=== PATIENT | female | born 1995 | race Caucasian/White ===

== ENCOUNTER 2023-06-24 08:49 | Outpatient (CLI) | payer MEDICAID, SELFPAY ==
[2023-06-24 10:47] VITALS: BP 117/74; PULSE 79; TEMP 36.8
[2023-06-24 11:23] VITALS: BP 117/74; PULSE 79
[2023-06-24 11:32] LABS: ROM Plus Negative
== END 2023-06-24 12:15 | disposition home or self-care (01) ==
LOC: BCD 08:51 → OBS 10:46
PROVIDERS: Visit Provider Family Medicine
DX: O47.03 False labor before 37 completed weeks of gestation, third trimester (principal); Z3A.33 33 weeks gestation of pregnancy
CPT/HCPCS: 84112; 59025

== ENCOUNTER 2023-07-13 06:28 | Inpatient (IN) | payer MEDICAID, SELFPAY ==
[2023-07-13] VITALS (106 sets, daily range): BP systolic 109–132; BP diastolic 60–93; PULSE 67–108; RESP 16–18; TEMP 36.4–37.1; O2SAT 95–100; BMI 43.1
--- NOTE | 2023-07-13 06:21 | W.PM.OBHPL1 ---
Date of service: 07/13/23 Time of Service: 06:21 Assessment and Plan Assessment and plan (1) Post-dates : Status: Acute Assessment and plan: Occas mild ctx, cat 1 NST, post dates. Given only 1+ cm, will start with cooks catheter and advance to miso/pit as indicated as day progresses. routine monitoring, labs. Aware of inc risk for Shoulders. Discussed Felicita and add'l procedures if needed with delivery. OB-HPI Labor/Delivery History of Present Illness Reason for Visit: induction of labor Chief Complaint: Scheduled Induction of Labor Indication for Induction: Post Date. WENDY Calculator Estimated Delivery Date Method Current WG Current Estimate 07/05/23 LMP (Certain) 41w 1d Other Estimates 07/08/23 Ultrasound #1 40w 5d Comments: Eunice is 28 yo at 41 1/7 with prodromal ctx for a few days. Reassuring Cat 1 NST 07/10 and 07/11. Last cervical exam: 1-2 cm, soft, ant, engaged, 50% effaced. Good mvmt, transient CAMEJO yesterday, nl BP, no GDM. Eunice and partner reviewed risks/benefits of augmentation/induction modalities - miso, pit - hyperstim, FHT abnormalities, stress, inc c/section risk. Overnight she napped - hard to sleep with ,mild ctx Q 10 min. Good Fmvt, no ROM GBS neg - Short stature - inc risk shoulders Note wt ttreand over - down ~10# persistent cig use - down to 6-8 despite chantix use. note hx mental health issues - on citalopram currently History of Present Expected Delivery Route/Plan NVD [facility] pt Specific Issues/Plan 1. Smoker - 1/2ppd 2. Obesity: BMI 43.2 -anesthesia consult 05/18/23 3. Anxiety: on Lexapro Narrative: as above PFSH All Active Problems (Updated 07/13/23 @ 06:46 by Brijesh Virmaontes) Post-dates (Acute) Lumbar herniated disc (Acute) Obesity (Chronic) Vitamin D deficiency (Acute) Seasonal allergies (Acute) Moderate major depression (Acute) Migraine headache without aura (Acute) Intrinsic eczema (Acute) Hypertriglyceridemia (Acute) Hyperinsulinemia (Acute) Chronic pain disorder (Chronic) Asthma, exercise induced (Acute) Anxiety (Chronic) (Acute) Medical History (Updated 07/13/23 @ 06:46 by Brijesh Viramontes) Abnormal Pap smear of cervix Chronic GERD Superficial perivascular dermatitis punch BX 2017 Surgical History History of carpal tunnel surgery of left wrist 02/2021 History of carpal tunnel surgery of right wrist 10/2020 History of tonsillectomy 2019 History of cholecystectomy 2018 Family History (Updated 05/18/23 @ 14:01 by Ashli Nicolas LPN) Mother Diabetes Hypertension Endometriosis Other malignant neoplasm without specification of site Uterine cancer Father COPD (chronic obstructive pulmonary disease) Brother Allergies ADHD Nonpsychotic mental disorder Sister Bipolar depression ADHD Nonpsychotic mental disorder Maternal Grandfather Dementia Maternal Grandmother Tongue cancer Diabetes Other malignant neoplasm without specification of site Maternal Uncle No problems noted. Social History (Updated 05/18/23 @ 17:59 by Kiara Mercedes MD) Smoking/Tobacco Use Status: Current every day Tobacco Type: cigarettes Smoking packs per day: 0.5 Smoking cigarettes per day: 10.0 Smoking risk assessment performed?: Yes Alcohol Intake: former Drug use: Rarely Substance use type: does not use Household members: significant other Housing: house Number of Children: 0 current occupation: SALES MANAGER [employer] Do you think of yourself as: straight/heterosexual Female Reproductive History Menstrual Age of Menarche: 9 History History 1 Para 0 Hx # Term Pregnancies Multiple births Hx # Pregnancies Ectopic pregnancies AB induced Hx Number of Living Children AB spontaneous Meds Allergies and Home Medications Allergies Allergy/AdvReac Type Severity Reaction Status Date / Time permethrin Allergy Severe hives rash Verified 05/18/23 10:28 bee sting Allergy Severe Anaphylaxis Uncoded 05/18/23 10:28 Home Medications Medication Instructions Recorded Confirmed Type vit 168-iron 27 mg-folic cap PO 05/18/23 05/18/23 History acid 800 mcg-omega3 235 mg capsule (One-A-Day -1) Exam Physical Exam Narrative: bright, alert, comfortable neither anxious nor depressed goos range of affect clear lungs CVS - reg, no murmur abd - soft, no masses ext - no edema cervix - Detailed Labor and Delivery Exam Dilation: 1 Effacement (%): 50 station: -3 Position: OA Cervix position: anterior Consistency: soft Munoz Score: Cervical Points Exam 0 1 2 3 Dilation Closed 1-2cm 3-4 cm 5-6cm Effacement 0-30% 40-50% 60-70% 80% Consistency Firm Medium Soft Station -3 -2 -1,0 +1,+2 Position Posterior Mid Anterior MUNOZ Score(Cervical Ripeness Score): 6 Amniotic Membrane Status: Intact Contraction Frequency(min): q6-8 Comments: mod variability, no decela - cat 1 NST Results Results Group Beta Strep: Negative Blood Type: A- Rubella Status: Immune Varicella Immunity: Not Tested Additional Findings Results: Cat 1 NST with mild ctx q 8 Risk Assessment Risk for Shoulder Dystocia Historical/Initial OB: POSITIVE FOR: Pre- BMI>30 40 Weeks: POSTIVE FOR: Post Dates Increased Risk?: Yes Counseling: done Date/Initial: June 2023 Delivery Plan @ 40 wks: - post dates induction/augmentation Risk for Pre-Eclampsia Daily Dose ASA Indicated: No Risk for Post- Hemorrhage At Risk?: No Risks Reviewed Risks Reviewed Upon Admission: Yes
[2023-07-13 06:58] LABS: HCT 39.6 % (36.0-46.0); HGB 13.8 g/dL (11.2-15.7); MCH 30.9 pg (27.0-33.0); MCHC 34.8 % (32.0-36.0); MCV 89 fL (80-95); MPV 10.2 fL (8.0-11.0); Platelet Count 220 10^3/uL (130-400); RBC 4.46 10^6/uL (3.93-5.22); RDW-SD 45.1 fL; WBC 13.51 10^3/uL (4.4-10.8)
[2023-07-13] MEDS: Varenicline 1 MG TAB PO ×2 (11:59→21:12)
--- NOTE | 2023-07-13 13:30 | ANES.PREOP_ITS ---
General Info Date of Service Date Performed: 07/13/23 Height: 5 ft 2 in Weight: 107.048 kg Body Mass Index (BMI): 43.1 Meds Allergies and Home Medications Allergies Allergy/AdvReac Type Severity Reaction Status Date / Time permethrin Allergy Severe hives rash Verified 05/18/23 10:28 bee sting Allergy Severe Anaphylaxis Uncoded 05/18/23 10:28 Home Medication Medication Instructions Recorded vit 168-iron 27 mg-folic 1 cap PO DAILY 05/18/23 acid 800 mcg-omega3 235 mg capsule (One-A-Day -1) varenicline 1 mg tablet (Chantix) 1 mg PO BID 07/13/23 Current Visit Medications: Current Medications Generic Name Dose Route Start Last Admin Trade Name Freq PRN Reason Stop Dose Admin Fentanyl/Ropivacaine 200 ml 07/13/23 12:15 Fentanyl/Ropivacaine 2 Mcg/Ml And 0.1% 200 Ml Cadd Cassette EP DIRECTED [facility] Ringer's Solution 1,000 mls @ 125 mls/hr 07/14/23 06:00 IV INFUSION [facility] IV Miscellaneous Supplies 1 each 07/13/23 06:30 Iv Access IV DIRECTED [facility] Sodium Chloride 0 ml 07/13/23 06:24 Normal Saline Flush 10 Ml Syr IVP PRN PRN Sodium Chloride 0 ml 07/13/23 08:30 Normal Saline Flush 10 Ml Syr IVP BID [facility] Sodium Chloride 0 ml 07/13/23 06:24 Normal Saline 10 Ml Vial IJ DIRECTED PRN Sodium Chloride 0 ml 07/13/23 06:24 Normal Saline Flush 10 Ml Syr IVP PRN PRN Varenicline 1 mg 07/13/23 08:30 07/13/23 11:59 Varenicline 1 Mg Tab PO 1 mg BID ANTONIETTA Administration Zolpidem Tartrate 10 mg 07/13/23 21:00 Zolpidem 5 Mg Tab PO 07/14/23 06:00 2100 [facility] Active Problems Active Problems: Problem Status Onset Code Post-dates O48.0 Lumbar herniated disc M51.26 Obesity E66.9 Vitamin D deficiency E55.9 Seasonal allergies J30.2 Moderate major depression F32.1 Migraine headache without aura G43.009 Intrinsic eczema L20.84 Hypertriglyceridemia E78.1 Hyperinsulinemia E16.1 Chronic pain disorder G89.4 Asthma, exercise induced J45.990 Anxiety F41.9 Z34.90 Medical History Medical History (Updated 07/13/23 @ 06:46 by Brijesh Viramontes) Abnormal Pap smear of cervix Chronic GERD Superficial perivascular dermatitis punch BX 2017 Surgical History Surgical History History of carpal tunnel surgery of left wrist 02/2021 History of carpal tunnel surgery of right wrist 10/2020 History of tonsillectomy 2019 History of cholecystectomy 2018 Tobacco Smoking/Tobacco Use Status: Current every day Tobacco Type: cigarettes Smoking packs per day: 0.5 Smoking cigarettes per day: 10.0 Alcohol Alcohol Intake: former Substance Use Substance use: Rarely Substance use type: does not use Prental History History 2 1 Para 0 Hx # Term Pregnancies Multiple births Hx # Pregnancies Ectopic pregnancies AB induced Hx Number of Living Children AB spontaneous Vital Signs and Lab Results Vital Signs Most Recent Vital Signs in EMR: Most Recent Vital Signs Temp Pulse Resp BP 36.4 C L 77 17 121/79 07/13/23 11:43 07/13/23 11:43 07/13/23 11:43 07/13/23 11:43 Lab Results 07/13/23 06:47 Blood Type / Crossmatch: 2 Patient ABO/Rh A Negative 07/13/23 Antibody Screen NEGATIVE 07/13/23 Complete Blood Count: 2 White Blood Count 13.51 10^3/uL (4.4-10.8) H 07/13/23 06:47 Red Blood Count 4.46 10^6/uL (3.93-5.22) 07/13/23 06:47 Hemoglobin 13.8 g/dL (11.2-15.7) 07/13/23 06:47 Hematocrit 39.6 % (36.0-46.0) 07/13/23 06:47 Platelet Count 220 10^3/uL (130-400) 07/13/23 06:47 Complete Metabolic Panel: 2 No Data to Display Liver Function Panel: 2 No Data to Display Coagulation Panel: 2 No Data to Display Cardiac Panel: 2 No Data to Display Arterial Blood Gas: 2 No Data to Display Venous Blood Gas: 2 No Data to Display Pancreas Panel: 2 No Data to Display Thyroid Panel: 2 No Data to Display Infectious Disease: 2 No Data to Display Blood Cultures: 2 No Data to Display Toxicology Panel: 2 No Data to Display Panel: 2 No Data to Display Anesthesia Assessment and Plan Anesthesia History Personal History: No History of Anesthesia Complications Family History: No Family History of Anesthesia Complications Exercise Tolerance Exercise Tolerance: Metabolic Equivalents>4 Pertinent Negatives Pertinent Negatives: No Major Cardiovascular Symptoms or Complaints, No Major Pulmonary Symptoms or Complaints and No History of CVA/TIA Cardiac & Pulmonary Exam Cardiac Exam: Normal S1/S2 Heart Sounds Pulmonary Exam: Clear Bilateral Breath Sounds Implantable Cardiac Device Does patient have a Pacemaker or an ICD?: No Airway Exam Known Difficult Airway: No Mallampati Class: 2 Mouth Opening: Normal (> 3cm) Thyromental Distance: Greater than 3 cm Neck Range of Motion: Full ROM Neck Circumference: Normal Teeth Condition: Normal Dentition ASA Classification ASA Score: ASA 3 Emergency Case?: No NPO Status NPO Status: Full Stomach (, ate lunch at 1230) Status Status: Confirmed Anesthesia Plan Resuscitation Status: Full Code Anesthesia Technique: Labor Epidural Airway Planned: Natural Airway Monitors Used: Standard Monitors
[2023-07-13] MEDS: Bupivacaine 0.25% Pres-Free 10 ML VIAL EP (15:36)
[2023-07-13] MEDS: FentaNYL/ROPIvacaine 2 mcg/ml and 0.1% 200 ML CADD Cassette EP (15:37)
[2023-07-13] MEDS: fentaNYL 100 MCG/2 ML VIAL EP (15:37)
--- NOTE | 2023-07-13 15:47 | W.ANESNEU ---
Epidural/Spinal Catheter Date Performed: 07/13/23 Procedure Start: 15:16 Procedure Stop: 15:48 Requesting Provider: Brijesh Viramontes Procedure Location: Obstetrics Reason Performed: Labor Epidural Standard Monitors Applied: Blood Pressure, SpO2 and See EMR for corresponding vital signs Patient Position: Sitting Sedation Given (Indicate Dose Given): No Sedation given Patient Mental Status: Awake Sterility: Hand Hygiene, Surgical Cap, Surgical Mask, Sterile Gloves, Sterile Drape/Sheet and Chlorhexidine Procedure Location: L3-L4 Interspace Epidural Needle: Tuohy 18 Gauge Needle Length: 3.5 Inch Needle Approach: Midline Epidural Procedure: Skin Prepped, Sterile Drape Placed, 1% Lidocaine to skin and subcutaneous tissue with 25G needle, Tuohy Needle placed, JENNIE to Saline Used, Epidural Catheter Placed, Positive Heme Noted (heme in catheter, pulled back, cleared with saline, no heme on aspiration ), Negative CSF Flow and Tuohy Needle Removed Catheter Placed?: Catheter Placed Test Dose (Indicate Dose Given): 3ml 1.5% Lidocaine with 1:200K Epinephrine Given and Negative Test Dose Loss of Resistance Depth (cm): 7 Catheter depth at skin (cm): 12 Dressing: Sorbaview Dressing Placed, Mastisol Used and Dressing reinforced with Tape Epidural Provider Bolus (Indicate Dose Given): Total bolus dose given in 3-5 ml divided doses and Total Bupivacaine 0.25% Given (ml) Dose:: 6 ml Additives (Indicate Dose Given ): Fentanyl PF Dose:: 100mcg Infusion Medication: Medication Infusion Began Medication Infusion: Ropivacaine 0.1% with Fentanyl 2mcg/ml Maintenance Infusion Rate (ml/hour): 10 PCEA Bolus Dose (ml): 5 Block Level: N/A Paresthesia: None and Left Paresthesia Duration: Transient Ultrasound: Not Used Number of Attempts (See previous attempts in note section): 1 Procedure Tolerated: No Complications and Patient tolerated well Procedure Outcome: Successful Performed By: Jeannine Laura
--- NOTE | 2023-07-13 17:15 | W.PM.OBNL1 ---
Date of service: 07/13/23 Time of Service: 17:15 Pelvic Exam Dilation: 5 Effacement (%): 90 station: -3 Position: LOT Cervix Position: anterior Consistency: soft Vaginal Exam Presentation: Vertex Comments: AROM - mild mec excellent epidural effect A: reassuring maternal and picture P: Expect cont freq monitoring, oral fluids S. Genereaux Objective Abnormal lab results 07/13/23 Range/Units 06:47 WBC 13.51 H (4.4-10.8) 10^3/uL Temp Pulse Resp BP Pulse Ox 36.8 C 72 18 113/75 98 07/13/23 15:42 07/13/23 17:11 07/13/23 16:00 07/13/23 16:57 07/13/23 17:11 Laboratory Results WBC 13.51 10^3/uL (4.4-10.8) H 07/13/23 06:47 RBC 4.46 10^6/uL (3.93-5.22) 07/13/23 06:47 Hgb 13.8 g/dL (11.2-15.7) 07/13/23 06:47 Hct 39.6 % (36.0-46.0) 07/13/23 06:47 MCV 89 fL (80-95) 07/13/23 06:47 MCH 30.9 pg (27.0-33.0) 07/13/23 06:47 MCHC 34.8 % (32.0-36.0) 07/13/23 06:47 RDW 14.0 % (11.7-14.6) 07/13/23 06:47 Plt Count 220 10^3/uL (130-400) 07/13/23 06:47 MPV 10.2 fL (8.0-11.0) 07/13/23 06:47 Patient ABO/Rh A Negative 07/13/23 06:47 Antibody Screen NEGATIVE 07/13/23 06:47 Results Hemoglobin/Hematocrit: Hgb 13.8 g/dL (11.2-15.7) 07/13/23 06:47 Hct 39.6 % (36.0-46.0) 07/13/23 06:47 Abnormal Lab Findings: Abnormal Labs 07/13/23 06:47 WBC 13.51 H
--- NOTE | 2023-07-13 18:12 | W.PM.OBNL1 ---
Date of service: 07/13/23 Time of Service: 18:12 Pelvic Exam Dilation: 5 Effacement (%): 90 station: -2 Position: MONE Cervix Position: anterior Consistency: soft Comments: scant mec - essentially clear AF Contractions Monitor Mode: External Contraction Frequency(min): Q6 Contraction Duration(sec): 45 Intensity: Mild/Moderate Fetus A Heart Rate Baseline: 150 Presentation: Vertex Variability: Moderate (6-25 BPM) Categories: Category I Assessment and Plan Assessment and plan (1) Post-dates : Status: Acute Assessment and plan: Effective epidural, now AROM, mild/scant mec, cat 1 NST No cervical change in past 1.5 hrs - some descent. A: lack of dilation and q6 min ctx may be epidural related. and maternal wellbeing. Discussed R+B of augmenting with pitocin. Particular risks of pit include tachysystole, maribell cardia, inc risk of c/section Benefits may include shorter labor - expect minimal discomfort with epidural in place P: start low dose pit and increase to achieve shorter ctx interval. Continue cont monitoring Alexx fully apart of discussion and shared decision making. Neither Eunice nor Alexx had questions and both concurred with plan. Objective Abnormal lab results 07/13/23 Range/Units 06:47 WBC 13.51 H (4.4-10.8) 10^3/uL Temp Pulse Resp BP Pulse Ox 36.8 C 67 18 116/72 98 07/13/23 18:00 07/13/23 18:07 07/13/23 18:00 07/13/23 18:00 07/13/23 18:06 Laboratory Results WBC 13.51 10^3/uL (4.4-10.8) H 07/13/23 06:47 RBC 4.46 10^6/uL (3.93-5.22) 07/13/23 06:47 Hgb 13.8 g/dL (11.2-15.7) 07/13/23 06:47 Hct 39.6 % (36.0-46.0) 07/13/23 06:47 MCV 89 fL (80-95) 07/13/23 06:47 MCH 30.9 pg (27.0-33.0) 07/13/23 06:47 MCHC 34.8 % (32.0-36.0) 07/13/23 06:47 RDW 14.0 % (11.7-14.6) 07/13/23 06:47 Plt Count 220 10^3/uL (130-400) 07/13/23 06:47 MPV 10.2 fL (8.0-11.0) 07/13/23 06:47 Patient ABO/Rh A Negative 07/13/23 06:47 Antibody Screen NEGATIVE 07/13/23 06:47 Results Hemoglobin/Hematocrit: Hgb 13.8 g/dL (11.2-15.7) 07/13/23 06:47 Hct 39.6 % (36.0-46.0) 07/13/23 06:47 Abnormal Lab Findings: Abnormal Labs 07/13/23 06:47 WBC 13.51 H
[2023-07-13] MEDS: Oxytocin/Normal Saline 30 UNIT/500 ML BAG 2 UNITS IV (18:35)
--- NOTE | 2023-07-13 19:33 | W.PM.OBNL1 ---
Date of service: 07/13/23 Time of Service: 19:33 Objective Abnormal lab results 07/13/23 Range/Units 06:47 WBC 13.51 H (4.4-10.8) 10^3/uL Temp Pulse Resp BP Pulse Ox 36.8 C 75 18 116/77 99 07/13/23 18:00 07/13/23 19:21 07/13/23 18:00 07/13/23 19:21 07/13/23 18:11 Laboratory Results WBC 13.51 10^3/uL (4.4-10.8) H 07/13/23 06:47 RBC 4.46 10^6/uL (3.93-5.22) 07/13/23 06:47 Hgb 13.8 g/dL (11.2-15.7) 07/13/23 06:47 Hct 39.6 % (36.0-46.0) 07/13/23 06:47 MCV 89 fL (80-95) 07/13/23 06:47 MCH 30.9 pg (27.0-33.0) 07/13/23 06:47 MCHC 34.8 % (32.0-36.0) 07/13/23 06:47 RDW 14.0 % (11.7-14.6) 07/13/23 06:47 Plt Count 220 10^3/uL (130-400) 07/13/23 06:47 MPV 10.2 fL (8.0-11.0) 07/13/23 06:47 Patient ABO/Rh A Negative 07/13/23 06:47 Antibody Screen NEGATIVE 07/13/23 06:47 Subjective Interval history since last seen: Eunice and Alexx doing well. good mvmt, cont scant mec AF noted pit at 4 ctx freq increased - still quite comfortable with epidural- q 3-4min FHT - no decels, mod variability - CAt 1 A: maternal and wellbeing P: expect , cont pit - inc dose with goal of consistent q2-3 min ctx S. Genereaux Results Hemoglobin/Hematocrit: Hgb 13.8 g/dL (11.2-15.7) 07/13/23 06:47 Hct 39.6 % (36.0-46.0) 07/13/23 06:47 Abnormal Lab Findings: Abnormal Labs 07/13/23 06:47 WBC 13.51 H
--- NOTE | 2023-07-13 20:56 | W.PM.OBNL1 ---
Date of service: 07/13/23 Time of Service: 20:56 Objective Abnormal lab results 07/13/23 Range/Units 06:47 WBC 13.51 H (4.4-10.8) 10^3/uL Temp Pulse Resp BP Pulse Ox 37.1 C 90 18 110/76 99 07/13/23 19:48 07/13/23 20:55 07/13/23 20:00 07/13/23 20:55 07/13/23 19:48 Laboratory Results WBC 13.51 10^3/uL (4.4-10.8) H 07/13/23 06:47 RBC 4.46 10^6/uL (3.93-5.22) 07/13/23 06:47 Hgb 13.8 g/dL (11.2-15.7) 07/13/23 06:47 Hct 39.6 % (36.0-46.0) 07/13/23 06:47 MCV 89 fL (80-95) 07/13/23 06:47 MCH 30.9 pg (27.0-33.0) 07/13/23 06:47 MCHC 34.8 % (32.0-36.0) 07/13/23 06:47 RDW 14.0 % (11.7-14.6) 07/13/23 06:47 Plt Count 220 10^3/uL (130-400) 07/13/23 06:47 MPV 10.2 fL (8.0-11.0) 07/13/23 06:47 Patient ABO/Rh A Negative 07/13/23 06:47 Antibody Screen NEGATIVE 07/13/23 06:47 Subjective Interval history since last seen: steady inc ctx frequency - now consistent q2-3. Very comfortable with epidural - maternal vitals fine. good UO with straight cath Good FMVT. FHT - accels, no decels, mod variability O: comfortable cervix - 7 cm/90%/-1 station/MONE/vtx/ruptured A: Maternal and wellbeing. Expected cervical change/descent with pit at 6 - now up to 8. P: cont pit - effective so far and not generating stress expect S. Genereaux Results Hemoglobin/Hematocrit: Hgb 13.8 g/dL (11.2-15.7) 07/13/23 06:47 Hct 39.6 % (36.0-46.0) 07/13/23 06:47 Abnormal Lab Findings: Abnormal Labs 07/13/23 06:47 WBC 13.51 H
--- NOTE | 2023-07-13 22:39 | W.PM.OBNL1 ---
Date of service: 07/13/23 Time of Service: 22:40 Pelvic Exam Comments: Snoozing between ctx - quite comfortable nausea past 30 min good fmvt O: vitals stable cvx - 9 cm/100/-1/MONE/vtx/scant caput FHT - mod variability, no decels ctx q 2-3 - strong A: expected progress - cont current pit dose - effective and not adversely affecting fetus P: encourage rest for next 1/2-1 hr - then reeval and help start pushing. Will need coaching due to dense epidural - though she does sense rectal pressure Expect SEcond stage huddle done - reviewed with pt re position changes, shoulder risks. S. Genereaux Objective Abnormal lab results 07/13/23 Range/Units 06:47 WBC 13.51 H (4.4-10.8) 10^3/uL Temp Pulse Resp BP Pulse Ox 36.4 C L 96 H 18 118/78 99 07/13/23 21:46 07/13/23 22:39 07/13/23 21:00 07/13/23 22:39 07/13/23 19:48 Laboratory Results WBC 13.51 10^3/uL (4.4-10.8) H 07/13/23 06:47 RBC 4.46 10^6/uL (3.93-5.22) 07/13/23 06:47 Hgb 13.8 g/dL (11.2-15.7) 07/13/23 06:47 Hct 39.6 % (36.0-46.0) 07/13/23 06:47 MCV 89 fL (80-95) 07/13/23 06:47 MCH 30.9 pg (27.0-33.0) 07/13/23 06:47 MCHC 34.8 % (32.0-36.0) 07/13/23 06:47 RDW 14.0 % (11.7-14.6) 07/13/23 06:47 Plt Count 220 10^3/uL (130-400) 07/13/23 06:47 MPV 10.2 fL (8.0-11.0) 07/13/23 06:47 Patient ABO/Rh A Negative 07/13/23 06:47 Antibody Screen NEGATIVE 07/13/23 06:47 Results Hemoglobin/Hematocrit: Hgb 13.8 g/dL (11.2-15.7) 07/13/23 06:47 Hct 39.6 % (36.0-46.0) 07/13/23 06:47 Abnormal Lab Findings: Abnormal Labs 07/13/23 06:47 WBC 13.51 H
[2023-07-13] MEDS: Lactated Ringers 1,000 ML 125 ML IV (23:11)
--- NOTE | 2023-07-13 23:36 | W.PM.OBNL1 ---
Date of service: 07/13/23 Time of Service: 23:36 Objective Abnormal lab results 07/13/23 Range/Units 06:47 WBC 13.51 H (4.4-10.8) 10^3/uL Temp Pulse Resp BP Pulse Ox 36.4 C L 86 18 109/69 99 07/13/23 21:46 07/13/23 23:08 07/13/23 21:00 07/13/23 23:08 07/13/23 19:48 Laboratory Results WBC 13.51 10^3/uL (4.4-10.8) H 07/13/23 06:47 RBC 4.46 10^6/uL (3.93-5.22) 07/13/23 06:47 Hgb 13.8 g/dL (11.2-15.7) 07/13/23 06:47 Hct 39.6 % (36.0-46.0) 07/13/23 06:47 MCV 89 fL (80-95) 07/13/23 06:47 MCH 30.9 pg (27.0-33.0) 07/13/23 06:47 MCHC 34.8 % (32.0-36.0) 07/13/23 06:47 RDW 14.0 % (11.7-14.6) 07/13/23 06:47 Plt Count 220 10^3/uL (130-400) 07/13/23 06:47 MPV 10.2 fL (8.0-11.0) 07/13/23 06:47 Patient ABO/Rh A Negative 07/13/23 06:47 Antibody Screen NEGATIVE 07/13/23 06:47 Subjective Interval history since last seen: feeling pushy, pit stable at 8 snoozed some the p[ast hour less nausea O: complete/o station, MONE FHT - no decels, mod variability ctx q 2-3 A: entering second stage Huddle done as above pushing coaching tips given P: Expect S. Genereaux Results Hemoglobin/Hematocrit: Hgb 13.8 g/dL (11.2-15.7) 07/13/23 06:47 Hct 39.6 % (36.0-46.0) 07/13/23 06:47 Abnormal Lab Findings: Abnormal Labs 07/13/23 06:47 WBC 13.51 H
[2023-07-14] VITALS (20 sets, daily range): BP systolic 113–142; BP diastolic 69–97; PULSE 71–98; RESP 12–18; TEMP 36.6–36.8; O2SAT 98
[2023-07-14] MEDS: Hamamelis Leaf/Glycerin 100 EACH BOX PR (01:48)
[2023-07-14] MEDS: Acetaminophen 325 MG TAB 650 MG PO ×4 (01:48→20:07)
[2023-07-14] MEDS: Ibuprofen 600 MG TAB PO ×4 (01:48→20:08)
[2023-07-14] MEDS: Dibucaine 1% 28 GM TUBE TP (02:04)
[2023-07-14 06:42] LABS: HCT 36.4 % (36.0-46.0); HGB 12.5 g/dL (11.2-15.7); MCH 30.4 pg (27.0-33.0); MCHC 34.3 % (32.0-36.0); MCV 89 fL (80-95); MPV 10.5 fL (8.0-11.0); Platelet Count 189 10^3/uL (130-400); RBC 4.11 10^6/uL (3.93-5.22); RDW 13.8 % (11.7-14.6); RDW-SD 44.8 fL; WBC 16.97 10^3/uL (4.4-10.8)
[2023-07-14] MEDS: Varenicline 1 MG TAB PO ×2 (08:08→20:09)
[2023-07-14] MEDS: Docusate Sodium 100 MG CAP PO (08:08)
--- NOTE | 2023-07-14 14:29 | W.PM.OBPNV1 ---
Date of service: 07/14/23 Time of Service: 14:29 Assessment and Plan Assessment and plan (1) : Status: Acute Assessment and plan: Eunice is doing well post day 1. Pain well controlled, lochia normal. She had difficulty voiding initially but that is now resolved. Nursing well, although will need some support with this. Will give nicotine lozenges for cravings. Otherwise routine post care. Qualifiers: Weeks of gestation: 40 weeks Qualified Code(s): Z3A.40 - 40 weeks gestation of Subjective Subjective Patient comments: No complaints, Pain well controlled, Tolerating diet and Flatus present [place] baby status: Doing well and Nursing well feeding status: Exclusively breast feeding Narrative: Eunice is doing well. Tired. She did not get much sleep, but did eat well today. Waiting to get a shower. Voiding now without issue. Flatus but no BM yet. Up and about without issue. She reports nursing is going well and is going to start pumping as well. She is having nicotine withdrawal, requesting replacement. Exam Physical Exam Vital signs: Temp Pulse Resp BP Pulse Ox 36.6 C 71 12 124/80 99 07/14/23 08:00 07/14/23 08:00 07/14/23 08:00 07/14/23 08:00 07/13/23 19:48 Vital Signs Reviewed: Yes Constitutional Constitutional: no acute distress Respiratory Exam Respiratory Exam: Normal Cardiovascular Exam Cardiovascular Exam: Normal Fundal Exam Fundus: Below Umbilicus and Firm Extremities Exam Extremity Exam: Normal Results Hemoglobin/Hematocrit: Hgb 12.5 g/dL (11.2-15.7) 07/14/23 06:00 Hct 36.4 % (36.0-46.0) 07/14/23 06:00 Abnormal Lab Findings: Abnormal Labs 07/13/23 07/14/23 06:47 06:00 WBC 13.51 H 16.97 H
[2023-07-14] MEDS: Nicotine 2 MG LOZG SUC (14:59)
--- NOTE | 2023-07-14 21:40 | W.ANESPOSTOP ---
Postoperative Evaluation Date, Time and Location Date Performed: 07/14/23 Time Performed: 19:46 Patient Location: Obstetrics Vital Signs Most Recent Imported Vital Signs: Most Recent Vital Signs Temp Pulse Resp BP Pulse Ox 36.8 C 82 16 125/83 98 07/14/23 21:02 07/14/23 21:02 07/14/23 15:30 07/14/23 21:02 07/14/23 15:30 Pain Score Most Recent Pain Score: Most Recent Pain Score Pain Level [Abdomen] 4 07/14/23 15:30 Pain Level 7 07/14/23 14:59 Assessment Mental Status: Awake (Alert & Oriented to Patient Baseline) Airway and Respiratory Function: Patent airway with normal (patient baseline) respiratory exam Cardiovascular Function: Hemodynamically Stable Hydration Status: Adequately Hydrated Nausea & Vomiting: No Nausea or Vomiting Pain: Pain is tolerable per patient Peripheral Nerve Block: Patient did not receive a nerve block
[2023-07-15] MEDS: Ibuprofen 600 MG TAB PO ×2 (02:33→10:27)
[2023-07-15] MEDS: Acetaminophen 325 MG TAB 650 MG PO ×2 (02:34→10:27)
[2023-07-15] MEDS: Dibucaine 1% 28 GM TUBE TP (02:44)
[2023-07-15 08:00] VITALS: BP 126/84; PULSE 81; RESP 14; TEMP 36.7
--- NOTE | 2023-07-15 08:12 | DSE_ITS ---
Date of service: 07/15/23 Time of Service: 08:12 DS: Diagnosis Discharge Diagnosis (1) : Status: Acute Asessment and Plan: 28yo with Rh+ RI GBS-. complicated by SGA baby likely due to tobacco use, otherwise no concerns. Uncomplicated labor and delivery. Uncomplicated post course. She has had a BM, eating well. Lochia normal. No dizziness. Voiding well. Nursing is improving with support. Will DC home today with follow up in clinic in 2 weeks. Discharge Plan Disposition Patient Disposition: Home Condition: Good Discharge Details Reason For Visit: POST DATES Admit Date/Time: 07/13/23 06:28 Admit Provider: Brijesh Viramontes Attending Provider: Brijesh Viramontes Primary Care Provider: Unknown,Unknown Home Meds and New Rx's Prescriptions: No Action One-A-Day -1 27 mg iron- 800 mcg-235 mg capsule 1 cap PO DAILY varenicline [Chantix] 1 mg tablet 1 mg PO BID Discharge Instructions Stand Alone Forms: BC Post Vaginal Deliver Activity:: Activity as Tolerated Equipment/Supplies:: No Equipment Needed Diet:: As Tolerated Discharge Orders Discharge Orders: Discharge Order (Routine); Ordered 07/15/23 Ordered By: Mike Ring OB:DS Summary Summary Vaginal Delivery Method: Spontaneaous Episiotomy Description: None Laceration Description: Perineal Laceration Extension: Second Degree complications OB DS: none Time spent discussing smoking cessation with patient: 3 to 10 minutes Contraception Discussed Contraception Discussed: Yes Contraceptive Plan: Undecided, [facility] Gender-Baby A: Female weight: 2470 kg Disposition of Baby A: Home Status at Discharge Functional status at discharge: independent ambulation Overall status at discharge: patient is progressing back to baseline Mental Status: mental status grossly normal Speech and Movement: speech and movement normal Mood: congruent mood Affect: normal affect Time Spent with Patient providing and/or coordinating discharge services: Less than 30 minutes Quality:SDOH Health Related Social Needs: No Data to Display Hospital Course Eunice presented for induction for Post dates. Started with cook catheter, and was then AROMed, light mec. Epidural was in place. Pitocin was started. She progressed well and delivered a viable female infant with a second degree laceration, repaired. No other complications. Exam Physical Exam Vital signs: Temp Pulse Resp BP Pulse Ox 36.8 C 82 16 125/83 98 07/14/23 21:02 07/14/23 21:02 07/14/23 15:30 07/14/23 21:02 07/14/23 15:30 Vital Signs Reviewed: Yes Respiratory Exam Respiratory Exam: Normal Cardiovascular Exam Cardiovascular Exam: Normal Fundal Exam Fundus: Below Umbilicus and Firm Extremities Exam Extremity Exam: Normal Neurological Exam Neurological Exam: Normal PFSH All Active Problems Post-dates (Acute) Lumbar herniated disc (Acute) Obesity (Chronic) Vitamin D deficiency (Acute) Seasonal allergies (Acute) Moderate major depression (Acute) Migraine headache without aura (Acute) Intrinsic eczema (Acute) Hypertriglyceridemia (Acute) Hyperinsulinemia (Acute) Chronic pain disorder (Chronic) Asthma, exercise induced (Acute) Anxiety (Chronic) (Acute) Medical History Abnormal Pap smear of cervix Chronic GERD Superficial perivascular dermatitis punch BX 2016 Surgical History History of carpal tunnel surgery of left wrist 02/2021 History of carpal tunnel surgery of right wrist 10/2020 History of tonsillectomy 2019 History of cholecystectomy 2018 Family History Mother Diabetes Hypertension Endometriosis Other malignant neoplasm without specification of site Uterine cancer Father COPD (chronic obstructive pulmonary disease) Brother Allergies ADHD Nonpsychotic mental disorder Sister Bipolar depression ADHD Nonpsychotic mental disorder Maternal Grandfather Dementia Maternal Grandmother Tongue cancer Diabetes Other malignant neoplasm without specification of site Maternal Uncle No problems noted. Social History Smoking/Tobacco Use Status: Current every day Tobacco Type: cigarettes Smoking packs per day: 0.5 Smoking cigarettes per day: 10.0 Smoking risk assessment performed?: Yes Alcohol Intake: former Drug use: Rarely Substance use type: does not use Household members: significant other Housing: house Number of Children: 0 current occupation: SECURITY OFFICER Do you think of yourself as: straight/heterosexual Do you feel safe at home: Yes Do you feel safe in your relationship?: No Female Reproductive History Menstrual Age of Menarche: 9 History History 1 Para 0 Hx # Term Pregnancies Multiple births Hx # Pregnancies Ectopic pregnancies AB induced Hx Number of Living Children AB spontaneous DS: Data Vitals/I&O Vitals and I&O: Vital Signs Temperature 36.8 C 07/14/23 21:02 Temperature Source Oral 07/14/23 21:02 Pulse 82 07/14/23 21:02 Pulse Rhythm Regular 07/14/23 21:00 Respiratory Rate 16 07/14/23 15:30 Respiratory Depth Normal 07/14/23 21:00 Blood Pressure 125/83 07/14/23 21:02 Blood Pressure Mean 97 07/14/23 21:02 Pulse Oximetry 98 07/14/23 15:30 Pain Level 4 07/14/23 15:30 Intake & Output 07/14/23 07/14/23 07/15/23 11:59 23:59 11:59 Intake Total 6.666 / 6.666 Output Total 1100 / 1200 100 / 1200 Balance -1093.334 / -1193.334 -100 / -1193.334 Intake: IV 6.666 / 6.666 Output: Urine 1100 / 1200 100 / 1200 Other: Urine Color Light Pita Urine Appearance Clear Urine Odor None Voiding Methods Toilet
== END 2023-07-15 13:15 | disposition home or self-care (01) | DRG 807 ==
PROVIDERS: Admitting Provider Family Medicine; Visit Provider Family Medicine
DX: O48.0 Post-term pregnancy (principal); Z37.0 Single live birth; Z3A.41 41 weeks gestation of pregnancy; O77.0 Labor and delivery complicated by meconium in amniotic fluid; O99.334 Smoking (tobacco) complicating childbirth; F17.210 Nicotine dependence, cigarettes, uncomplicated; O99.214 Obesity complicating childbirth; E66.9 Obesity, unspecified; O99.344 Other mental disorders complicating childbirth; F41.9 Anxiety disorder, unspecified; O70.1 Second degree perineal laceration during delivery; O36.5930 Maternal care for other known or suspected poor fetal growth, third trimester, not applicable or unspecified
CPT/HCPCS: 00123; 36415; 85027; 86850; 86900; 86901; 59200; J0665; J2003; J3010